=== PATIENT | male | born 1935 | race Caucasian/White ===

== ENCOUNTER → 2017-01-23 | Outpatient (CLI) | payer MEDICARE | END | disposition home or self-care (01) | LOC: CVU 13:13 | PROVIDERS: ATTEND Internal Medicine Cardiovascular Disease | DX: I11.0 Hypertensive heart disease with heart failure (principal); I50.30 Unspecified diastolic (congestive) heart failure; I08.3 Combined rheumatic disorders of mitral, aortic and tricuspid valves; I37.1 Nonrheumatic pulmonary valve insufficiency; I65.8 Occlusion and stenosis of other precerebral arteries | CPT/HCPCS: 93306; 93880 ==

== ENCOUNTER → 2018-01-27 | Outpatient (CLI) | payer MEDICARE | END | disposition home or self-care (01) | LOC: CVU 11:53 | PROVIDERS: ATTEND Internal Medicine Cardiovascular Disease | DX: I35.0 Nonrheumatic aortic (valve) stenosis (principal) | CPT/HCPCS: 0399T; 93306 ==

== ENCOUNTER 2020-02-18 17:05 | Emergency (ER) | payer MEDICARE ==
[~2020-02-18] VITALS: Ht 172.7 cm; Wt 88.0 kg
[~2020-02-18 17:05] MED LIST: ASPI-496 PO; ATOR-2 PO; DILT120C48 PO; FURO40TA6 PO; LOSA25TA25 PO; LOSA50TA14 PO; METF-754 PO; METO25TA35 PO; PIOG15TA22 PO; POTA20TA6 PO; RIVA15TA PO; TAMS-11 PO
--- NOTE | 2020-02-18 17:49 | NUR ---
PER DAUGHTER, PT HAD RODRÍGUEZ INSERTED FOR URINARY RETENTION S/P HOSPITALIZATION FOR AFIB. RODRÍGUEZ WAS REMOVED, BUT THEN PT HAD URINARY RETENTION AGAIN, SO RODRÍGUEZ WAS REPLACED BY HH NURSE TODAY AROUND 1630. DAUGHTER STATES NO URINE HAS DRAINED SINCE RODRÍGUEZ WAS PLACED. PT IS ON LASIX FOR AFIB PER DAUGHTER.
--- NOTE | 2020-02-18 18:01 | NUR ---
ER PA WAS IN TO SEE PT.
--- NOTE | 2020-02-18 18:30 | NUR ---
BLADDER SCAN DONE PER VERBAL ORDERS, SHOWED 632ML RESIDUAL URINE. FLUSHED RODRÍGUEZ WITH 100ML STERILE NS WITHOUT DIFFICULTY BUT NOTHING DRAINED FOLLOWING FLUSH. ER PA NOTIFIED. PT WITH ONLY MILD DISCOMFORT D/T RETENTION. DAUGHTER REMAINS AT BS.
[2020-02-18] MEDS ORDERED: LIDOCAINE 2%,20 ML JEL.PF.APP MM ONE ×3 (19:15→20:00)
--- NOTE | 2020-02-18 19:42 | NUR ---
PT'S RODRÍGUEZ CATH REMOVED, BLOOD NOTED AROUND TIP OF CATHETER. UROJET LIDOCAINE JELLY ADMINISTERED. ATTEMPTED INSERTION OF 16FR RODRÍGUEZ BUT UNABLE TO ADVANCE PAST PROSTATE. ER PA NOTIFIED. POC RV'WD WITH PT AND DAUGHTER.
[2020-02-18 20:20] VITALS: BP 148/68
[2020-02-18] MEDS ORDERED: METOPROLOL TARTRATE 25 MG TAB ONE ×2 (20:34→20:38)
--- NOTE | 2020-02-18 20:40 | NUR ---
PT'S DAUGHTER CONCERNED THAT PT'S HR ABOVE 100 AND PT HASN'T TAKEN HIS EVENING MEDS. ERP NOTIFIED. PT MEDICATED WITH PO METOPROLOL PER ORDERS. Addendum: 02/18/20 at 2130 by HBENSON AWAITING COUDE CATHETER FROM [facility].
--- NOTE | 2020-02-18 20:55 | NUR ---
RODRÍGUEZ CATH 16 COUDE INSERTED PER ORDERS. PT TOLERATED WELL. CLEAR YELLOW URINE DRAINING WITHOUT DIFFICULTY.
[2020-02-18] MEDS ORDERED: METOPROLOL TARTRATE 25 MG TAB PO ONE (21:00)
--- NOTE | 2020-02-18 21:28 | NUR ---
D/C INSTRUCTIONS & F/U APPT RV'WD WITH PT AND DAUGHTER, THEY VERBALIZE UNDERSTANDING. ASSISTED PT OUT OF ED VIA WC WITH DAUGHTER.
== END 2020-02-18 21:30 | disposition home or self-care (01) ==
LOC: ED 19:45
DX: N40.1 Benign prostatic hyperplasia with lower urinary tract symptoms (principal); R33.8 Other retention of urine; I11.0 Hypertensive heart disease with heart failure; I50.9 Heart failure, unspecified; I48.91 Unspecified atrial fibrillation; E11.9 Type 2 diabetes mellitus without complications
CPT/HCPCS: 51702; 99284

== ENCOUNTER 2020-04-04 07:33 | Emergency (ER) | payer MEDICARE ==
[~2020-04-04] VITALS: Ht 172.7 cm; Wt 91.0 kg
--- NOTE | 2020-04-04 07:55 | NUR ---
PT TO CT
[2020-04-04 08:05] VITALS: BP 149/75
--- NOTE | 2020-04-04 08:05 | NUR ---
PT RETURNED FROM CT, UPRIGHT ON GURNEY AWAKE & COMFORTABLE, [place] BUT RESPONDS APPROP TO STAFF, COMFORT MEASURES PROVIDED, CALL LIGHT WITHIN REACH.
--- NOTE | 2020-04-04 08:55 | NUR ---
Patient given discharge instructions and they have confirmed that they understand the instructions. Patient ambulatory with steady gait.
== END 2020-04-04 09:35 | disposition home or self-care (01) ==
LOC: ED 08:24
DX: S00.81XA Abrasion of other part of head, initial encounter (principal); S09.90XA Unspecified injury of head, initial encounter; I11.0 Hypertensive heart disease with heart failure; I50.9 Heart failure, unspecified; I48.91 Unspecified atrial fibrillation; E11.9 Type 2 diabetes mellitus without complications; W18.30XA Fall on same level, unspecified, initial encounter; Y93.89 Activity, other specified; Y92.009 Unspecified place in unspecified non-institutional (private) residence as the place of occurrence of the external cause; Y99.8 Other external cause status
CPT/HCPCS: 70450; 72125; 93005; 99285

== ENCOUNTER 2021-02-19 20:50 | Inpatient (IN) | payer MEDICARE ==
[~2021-02-19] VITALS: Ht 172.7 cm; Wt 91.4 kg
--- NOTE | 2021-02-19 20:57 | NUR ---
PT BIB [facility]. PER FAMILY, PT HAS HAD INCREASING WEAKNESS OVER THE LAST 4 DYAS. PT HAS ONLY GOTTEN OUT OF BED TO GO TO THE BATHROOM. PT HAS HAD DECREASED ORAL INTAKE. PT ALSO HAD 2 FALLS OVER THE LAST 4 DAYS. PT IS ON XARALTO, DENIES HITTING HEAD. EMS STATED THAT SUPINE BLOOD PRESSURE WAS 118/60 AND BP UPON STANDING WAS 80/50. PT GIVEN 400ML NS PERIANESTHESIA RN. PT DENIES ANY CP, SOB, N/V/D, COUGH OR FEVER.
[2021-02-19 21:22] LABS: BASOPHILS % (AUTO) 1 % (0-1); EOSINOPHILS % (AUTO) 2 % (1-7); LYMPHOCYTES % (AUTO) 17 % (22-44); MEAN CORPUSCULAR HEMOGLOBIN 24.9 pg (27.5-34.5); MEAN CORPUSCULAR HGB CONC 31.9 g/dL (33.2-36.2); MEAN PLATELET VOLUME 10.1 fL (7.4-10.4); MONOCYTES % (AUTO) 6 % (2-9); NEUTROPHILS % (AUTO) 74 % (42-75); PLATELET COUNT 254 x10^3/uL (130-400); RED BLOOD COUNT 5.08 x10^6/uL (4.38-5.82); RED CELL DISTRIBUTION WIDTH 17.3 % (9.4-14.8)
[2021-02-19] MEDS ORDERED: LOSA25TA12 PO (21:26)
[2021-02-19] MEDS ORDERED: METO-264 PO (21:26)
[2021-02-19] MEDS ORDERED: TAMS-11 PO (21:26)
[2021-02-19] MEDS ORDERED: DILT120T3 PO (21:26)
[2021-02-19] MEDS ORDERED: FURO-93 PO (21:26)
[2021-02-19] MEDS ORDERED: METF500T17 PO (21:26)
[2021-02-19] MEDS ORDERED: SODIUM CHLORIDE 0.9% 1,000 ML IV ONE (21:30)
[2021-02-19] MEDS ORDERED: SODIUM CHLORIDE FLUSH 10ML SYR IVF ONE (21:30)
[2021-02-19 21:32] LABS: ALANINE AMINOTRANSFERASE 13 U/L (12-78); ALBUMIN 2.8 g/dL (3.4-5.0); ANION GAP 9 mmol/L (5-15); CHLORIDE 106 mmol/L (98-107); CREATININE 1.37 mg/dL (0.7-1.3)
[2021-02-19 21:33] LABS: INTERNATIONAL NORMALIZED RATIO 1.15 (0.93-1.1); PROTHROMBIN TIME 12.3 Seconds (9.6-11.5)
[2021-02-19 21:41] LABS: ALKALINE PHOSPHATASE 85 U/L (45-117); BILIRUBIN,TOTAL 0.5 mg/dL (0.2-1.0); T4 (THYROXINE) 7.6 mcg/dL (4.5-12.1); TOTAL PROTEIN 6.5 g/dL (6.4-8.2); TROPONIN I < 0.015 ng/mL (0.000-0.045)
[2021-02-19 21:41] LABS: MICROSCOPIC NOT IND
[2021-02-19] MEDS ORDERED: MAGNESIUM SULFATE/D5W 100 ML IVPB ONE (22:00)
--- NOTE | 2021-02-19 22:12 | NUR ---
PT RESTING IN NAD, VITALS REMAIN STABLE.
[2021-02-19] MEDS ORDERED: MAGNESIUM SULFATE/D5W 100 ML ONE (22:15)
[2021-02-19] MEDS ORDERED: POTASSIUM CHLORIDE 20 MEQ PACKET ONE (22:15)
[2021-02-19] MEDS ORDERED: POTASSIUM CHLORIDE 20 MEQ PACKET PO ONE (22:30)
--- NOTE | 2021-02-19 22:33 | NUR ---
REPORT GIVEN TO JASON THOMPSON.
[2021-02-19 23:30] VITALS: BP 152/81
[2021-02-20] VITALS (7 sets, daily range): BP systolic 82–164; BP diastolic 50–93
[2021-02-20] MEDS ORDERED: MELATONIN 5 MG TABLET PO PRN (00:30)
[2021-02-20] MEDS ORDERED: ACETAMINOPHEN 325 MG TABLET PO PRN (00:30)
[2021-02-20] MEDS ORDERED: DOCUSATE 100 MG CAPSULE PO PRN (00:30)
[2021-02-20] MEDS: SODIUM CHLORIDE 0.9% 1,000 ML IV SCH ×2 (00:30→13:18)
[2021-02-20 03:52] LABS: BASOPHILS % (AUTO) 1 % (0-1); EOSINOPHILS % (AUTO) 2 % (1-7); LYMPHOCYTES % (AUTO) 19 % (22-44); MEAN CORPUSCULAR HEMOGLOBIN 25.1 pg (27.5-34.5); MEAN CORPUSCULAR HGB CONC 32.3 g/dL (33.2-36.2); MEAN PLATELET VOLUME 10.1 fL (7.4-10.4); MONOCYTES % (AUTO) 7 % (2-9); NEUTROPHILS % (AUTO) 72 % (42-75); PLATELET COUNT 227 x10^3/uL (130-400); RED BLOOD COUNT 4.92 x10^6/uL (4.38-5.82)
[2021-02-20 04:02] LABS: ANION GAP 6 mmol/L (5-15); CALCIUM 8.1 mg/dL (8.5-10.1); CHLORIDE 108 mmol/L (98-107)
[2021-02-20 04:10] LABS: CREATININE 1.26 mg/dL (0.7-1.3); TROPONIN I < 0.015 ng/mL (0.000-0.045)
[2021-02-20] MEDS: METOPROLOL SUCCINATE 25 MG TAB.ER.24H PO SCH (08:21)
[2021-02-20] MEDS: TAMSULOSIN 0.4 MG CAP.ER.24H PO SCH ×2 (08:21→20:50)
[2021-02-20] MEDS: FUROSEMIDE 20 MG TABLET PO SCH (08:21)
[2021-02-20] MEDS: POTASSIUM CHLORIDE 20 MEQ TAB.ER.PRT PO SCH ×2 (08:21→20:50)
[2021-02-20] MEDS ORDERED: FUROSEMIDE 20 MG TABLET PO SCH (09:00)
[2021-02-20 09:22] LABS: TROPONIN I < 0.015 ng/mL (0.000-0.045)
[2021-02-20] MEDS ORDERED: RIVAROXABAN 15 MG TABLET PO SCH (17:00)
[2021-02-20] MEDS ORDERED: OMNIPAQUE 350 MG/ML, 100ML BOTTLE ONE (18:52)
[2021-02-20] MEDS: LOSARTAN 25MG TABLET PO SCH (20:50)
[2021-02-20] MEDS ORDERED: DILTIAZEM 120 MG TABLET PO SCH (21:00)
[2021-02-20] MEDS ORDERED: ATORVASTATIN 80 MG TABLET PO SCH (21:00)
[2021-02-21 01:35] VITALS: BP 138/69
[2021-02-21] MEDS: SODIUM CHLORIDE 0.9% 1,000 ML IV SCH (03:10)
[2021-02-21 04:43] VITALS: BP 135/67
[2021-02-21 04:45] VITALS: BP 130/61
[2021-02-21 04:46] VITALS: BP 116/67
[2021-02-21 07:04] VITALS: BP 108/62
[2021-02-21] MEDS ORDERED: DOCU-131 PO (08:55)
[2021-02-21] MEDS: POTASSIUM CHLORIDE 20 MEQ TAB.ER.PRT PO SCH (09:05)
[2021-02-21] MEDS: FUROSEMIDE 20 MG TABLET PO SCH (09:06)
[2021-02-21] MEDS: TAMSULOSIN 0.4 MG CAP.ER.24H PO SCH (09:06)
[2021-02-21] MEDS: METOPROLOL SUCCINATE 25 MG TAB.ER.24H PO SCH (09:06)
[2021-02-21] MEDS: LOSARTAN 25MG TABLET PO SCH (09:06)
== END 2021-02-21 10:53 | disposition home health service (06) | DRG 67 ==
LOC: ED 21:22 → EDIP 22:18 → 4WST 22:50
PROVIDERS: ADMIT Internal Medicine; ATTEND Family Medicine
DX: I65.29 Occlusion and stenosis of unspecified carotid artery (principal); N17.0 Acute kidney failure with tubular necrosis; I50.31 Acute diastolic (congestive) heart failure; D68.69 Other thrombophilia; E46 Unspecified protein-calorie malnutrition; I11.0 Hypertensive heart disease with heart failure; I95.1 Orthostatic hypotension; Z20.822 Contact with and (suspected) exposure to COVID-19; E11.9 Type 2 diabetes mellitus without complications; I48.91 Unspecified atrial fibrillation; C61 Malignant neoplasm of prostate; D72.829 Elevated white blood cell count, unspecified; E78.5 Hyperlipidemia, unspecified; E83.42 Hypomagnesemia; E87.6 Hypokalemia; Z85.46 Personal history of malignant neoplasm of prostate; Z86.16 Personal history of COVID-19; Z87.891 Personal history of nicotine dependence; Z92.3 Personal history of irradiation; Z95.0 Presence of cardiac pacemaker; Z79.899 Other long term (current) drug therapy
CPT/HCPCS: 36415; 70498; 71045; 80048; 80053; 81003; 82962; 83036; 83735; 83880; 84100; 84436; 84443; 84484; 85025; 85379; 85610; 85730; 93005; 93306; 99285; G0378; Q9967; J7030